=== PATIENT | female | born 1990 | race Caucasian/White ===

== ENCOUNTER 2020-12-30 10:52 | Emergency (ER) | payer OTHER ==
[2020-12-30 10:58] VITALS: BP 130/76; PULSE 111; TEMP 98.6; BMI 40.0
[2020-12-30] MEDS ORDERED: SODIUM CHLORIDE 1,000 ML IV STA (11:13)
[2020-12-30 12:45] LABS: CALCIUM 8.6 mg/dL (8.5-10.1)
[2020-12-30 12:46] LABS: ALBUMIN 3.4 g/dl (3.4-5.0); BLOOD UREA NITROGEN 10.4 mg/dL (7-18)
[2020-12-30 12:49] LABS: CREATININE 0.6 mg/dL (0.55-1.3)
[2020-12-30 12:51] LABS: BILIRUBIN,TOTAL 0.2 mg/dL (0.2-1); HCG,QUALITATIVE URINE Positive; TOT PROT 7.3 g/dl (6.4-8.2)
[2020-12-30 12:54] LABS: PH,URINE 5.5 (5.0-8.0); URINE APPEARANCE CLEAR; URINE BILIRUBIN NEGATIVE (NEGATIVE); URINE COLOR YELLOW; URINE GLUCOSE (UA) NEGATIVE (NEGATIVE); URINE KETONE NEGATIVE (NEGATIVE); URINE LEUK ESTERASE NEGATIVE (NEGATIVE); URINE NITRITE NEGATIVE (NEGATIVE); URINE PROTEIN NEGATIVE (NEGATIVE); URINE UROBILINOGEN 0.2 mg/dL (0.2-1.0)
[2020-12-30 12:55] LABS: BASO % 0.4 % (0-2.0); EOS % 2.4 % (0-4.5); HEMATOCRIT 38.3 % (32.4-45.2); HEMOGLOBIN 12.9 GM/dL (10.7-15.3); LYMPH % 15.7 % (8-40); MCH 26.8 pg (25.7-33.7); MCHC 33.6 g/dl (32.0-36.0); MEAN CELL VOLUME 79.9 fl (80-96); MEAN PLT VOLUME 8.1 fl (7.5-11.1); MONO % 4.3 % (3.8-10.2); NEUT % 77.2 % (42.8-82.8); PLATELET COUNT 316 10^3/uL (134-434); WHITE BLOOD COUNT 10.7 K/mm3 (4.0-10.0)
[2020-12-30 15:33] LABS: INR 0.98 (0.83-1.09); PROTHROMBIN TIME (PATIENT) 12.1 SEC (9.7-13.0)
[2020-12-30 15:36] LABS: ACTIVATED PTT 28.5 SECONDS (25.2-36.5)
== END 2020-12-30 16:25 | disposition home or self-care (01) ==
LOC: JER 10:52
PROC: 3E0337Z Introduction of Electrolytic and Water Balance Substance into Peripheral Vein, Percutaneous Approach (ICD-10-PCS; principal; 2020-12-30)
DX: O26.891 Other specified pregnancy related conditions, first trimester (principal); R10.9 Unspecified abdominal pain
CPT/HCPCS: 36415; 76817-TC; 80053; 81003; 84702; 84703; 85025; 85610; 85730; 86850; 86900; 86901; 87086; 87491; 87591; 96360; 99284-25